=== PATIENT | male | born 1960 | race American Indian/Alaskan Native ===

== ENCOUNTER 2021-05-26 20:03 | Emergency (ER) | payer MEDICARE ==
[2021-05-26 21:02] LABS: Basophils % (Auto) 0.3 % (0.0-1.8); Eosinophils # (Auto) 0.1 K/mm3 (0.0-0.4); Eosinophils % (Auto) 2.1 % (0.0-4.3); Hematocrit 42.1 % (35.5-45.6); Hemoglobin 13.6 gm/dl (11.8-15.2); Lymphocytes # (Auto) 1.6 K/mm3 (1.2-5.4); Lymphocytes % (Auto) 22.5 % (13.4-35.0); Mean Corpuscular HGB Conc 32 % (32-34); Mean Corpuscular Volume 90 fl (84-94); Monocytes # (Auto) 0.5 K/mm3 (0.0-0.8); Monocytes % (Auto) 6.8 % (0.0-7.3); Platelet Count 266 K/mm3 (140-440); Red Blood Count 4.65 M/mm3 (3.65-5.03); Red Cell Distribution Width 13.4 % (13.2-15.2)
--- NOTE | 2021-05-26 21:02 | Emergency Department Report ---
HPI - General Chief Complaint: Recheck/Abnormal Lab/Rx Time Seen by Provider: 05/26/21 20:40 - HPI HPI: 60-year-old male presents to the emergency department, sent in from [facility], with a complaint of elevated potassium that was found 2 days ago. Patient has a past medical history of hypertension, hyperlipidemia and schizophrenia. The patient himself does not have any physical complaints. The rest of the blood work sent with him appears unremarkable. He denies any headache, fever, chest pain, shortness of breath, abdominal pain, lower extremity swelling, palpitations. ED Past Medical Hx - Past Medical History Previous Medical History?: Yes Hx Hypertension: Yes Hx Psychiatric Treatment: (schizophrenia) Additional medical history: hyperlipidemia ED Review of Systems ROS: Stated complaint: HIGH POTASSIUM LEVEL Other details as noted in HPI Comment: All other systems reviewed and negative Constitutional: denies: chills, fever Eyes: denies: eye pain, vision change ENT: denies: ear pain, throat pain Respiratory: denies: cough, shortness of breath Cardiovascular: denies: chest pain, palpitations Gastrointestinal: denies: abdominal pain, vomiting Genitourinary: denies: dysuria, discharge Musculoskeletal: denies: back pain, arthralgia Skin: denies: rash, lesions Neurological: denies: headache, weakness Physical Exam - Physical Exam Vital Signs: Vital Signs 05/26/21 20:19 Temperature 98.1 F Pulse Rate 61 Respiratory 18 Rate Blood Pressure 139/92 [Left] O2 Sat by Pulse 96 Oximetry Physical Exam: GENERAL: The patient is well-developed well-nourished. HENT: Normocephalic. Atraumatic. Patient has moist mucous membranes. EYES: Extraocular motions are intact. NECK: Supple. Trachea is midline. CHEST/LUNGS: Clear to auscultation. There is no respiratory distress noted. HEART/CARDIOVASCULAR: Regular. There is no tachycardia. There is no murmur. ABDOMEN: Abdomen is soft, nontender. Patient has normal bowel sounds. SKIN: Skin is warm and dry. NEURO: The patient is awake, alert, and cooperative. Normal speech. MUSCULOSKELETAL: There is no tenderness or deformity. There is no limitation range of motion. ED Course Vital Signs 05/26/21 20:19 Temperature 98.1 F Pulse Rate 61 Respiratory 18 Rate Blood Pressure 139/92 [Left] O2 Sat by Pulse 96 Oximetry ED Medical Decision Making - Lab Data Result diagrams: 05/26/21 20:40 05/26/21 20:40 Lab Results 05/26/21 05/26/21 Range/Units 20:40 20:40 WBC 7.1 (4.5-11.0) K/mm3 RBC 4.65 (3.65-5.03) M/mm3 Hgb 13.6 (11.8-15.2) gm/dl Hct 42.1 (35.5-45.6) % MCV 90 (84-94) fl MCH 29 (28-32) pg MCHC 32 (32-34) % RDW 13.4 (13.2-15.2) % Plt Count 266 (140-440) K/mm3 Lymph % (Auto) 22.5 (13.4-35.0) % Dukes % (Auto) 6.8 (0.0-7.3) % Eos % (Auto) 2.1 (0.0-4.3) % Baso % (Auto) 0.3 (0.0-1.8) % Lymph # (Auto) 1.6 (1.2-5.4) K/mm3 Dukes # (Auto) 0.5 (0.0-0.8) K/mm3 Eos # (Auto) 0.1 (0.0-0.4) K/mm3 Baso # (Auto) 0.0 (0.0-0.1) K/mm3 Seg Neutrophils % 68.3 (40.0-70.0) % Seg Neutrophils # 4.9 (1.8-7.7) K/mm3 Sodium 142 (137-145) mmol/L Potassium 4.6 (3.6-5.0) mmol/L Chloride 105.3 (98-107) mmol/L Carbon Dioxide 25 (22-30) mmol/L Anion Gap 16 mmol/L BUN 14 (9-20) mg/dL Creatinine 0.8 (0.8-1.3) mg/dL Estimated GFR > 60 ml/min BUN/Creatinine Ratio 18 % Glucose 96 (75-100) mg/dL Calcium 8.9 (8.4-10.2) mg/dL - EKG Data -: EKG Interpreted by Ca EKG shows normal: sinus rhythm, axis, intervals, QRS complexes, ST-T waves Rate: normal - EKG Data When compared to previous EKG there are: previous EKG unavailable Interpretation: normal EKG - Medical Decision Making This patient was sent in from [facility] after he had some hyperkalemia a few days ago with a potassium of 5.6. Potassium today is 4.6, the rest of his labs are unremarkable as well. The patient is safe for discharge back to [facility]. Critical Care Time: No Critical care attestation.: If time is entered above; I have spent that time in minutes in the direct care o f this critically ill patient, excluding procedure time. ED Disposition Clinical Impression: Medical clearance for psychiatric admission Disposition: HOME / SELF CARE / HOMELESS Is pt being admited?: No Condition: Stable Instructions: Medical Screening Exam Additional Instructions: Your potassium level today was 4.6. This is within the normal range. Please follow-up with your primary care physician when you are done at [facility]. Return to the emergency department with any worsening of your symptoms, new or concerning symptoms not addressed during this current emergency department visit, or with any acute distress. Referrals: PCP, Your [Other] - 3-5 Days Time of Disposition: 21:54
[2021-05-26 21:12] LABS: BUN/Creatinine Ratio 18; Blood Urea Nitrogen 14 mg/dL (9-20); Calcium 8.9 mg/dL (8.4-10.2); Hemolysis Index 5
[2021-05-26 23:34] VITALS: BP 128/98
--- NOTE | 2021-05-28 17:29 | Electrocardiograph Report ---
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
== END 2021-05-27 03:16 | disposition home or self-care (01) ==
LOC: ED 20:03
DX: Z04.6 Encounter for general psychiatric examination, requested by authority (principal); I10 Essential (primary) hypertension; F20.9 Schizophrenia, unspecified; Z79.899 Other long term (current) drug therapy
CPT/HCPCS: 36415; 80048; 85025; 93005; 99283